=== PATIENT | female | born 1960 | race Caucasian/White ===

== ENCOUNTER → 2020-09-21 11:53 | Outpatient (BNV) | payer OTHER, SELFPAY | PROVIDERS: PCP Nurse Practitioner Family; Visit Provider Internal Medicine | DX: D50.9 Iron deficiency anemia, unspecified (principal); D56.9 Thalassemia, unspecified; Z85.3 Personal history of malignant neoplasm of breast | CPT/HCPCS: 99214; G2211 ==

== ENCOUNTER 2020-10-14 14:52 | Outpatient (REF) | payer OTHER, SELFPAY ==
--- NOTE | 2020-10-14 14:57 | XR_ITS ---
EXAMINATION: XR KNEE, RIGHT CLINICAL INFORMATION: S83.91XA - Sprain of unspecified site of right knee, initial COMPARISON: None TECHNIQUE: Four views of the right knee. FINDINGS: There is a moderate suprapatellar effusion. The bony structures appear intact with no fracture, dislocation, or destructive process. There is normal bony mineralization. No joint narrowing or erosive change or chondrocalcinosis. XR/XR knee RT 4V IMPRESSION: Moderate suprapatellar effusion. No fracture or dislocation.
== END 2020-10-14 14:53 | disposition home or self-care (01) ==
LOC: HO.HMGCX 14:52
PROVIDERS: PCP Nurse Practitioner Family; Visit Provider Internal Medicine
DX: S83.91XA Sprain of unspecified site of right knee, initial encounter (principal)
CPT/HCPCS: 73564

== ENCOUNTER 2020-10-17 14:10 | Outpatient (REF) | payer OTHER, SELFPAY ==
--- NOTE | 2020-10-17 14:15 | US_ITS ---
EXAMINATION: US VENOUS ULTRASOUND WITH DOPPLER LOWER EXTREMITY, RIGHT CLINICAL INFORMATION: Right lower extremity pain. Assess for occult DVT COMPARISON: None TECHNIQUE: Ultrasound of the deep veins is performed from the hip to the calf with compression sonography and color and pulse Doppler assessment. Spectral analysis with color-flow imaging is performed. FINDINGS: There is normal venous compression and respiratory variation and augmented flow. The visualized common femoral vein, superficial femoral vein, profunda femoral vein, popliteal vein, and the trifurcation region shows no evidence of deep venous thrombosis. No popliteal fossa cyst. US/US venous duplex LE RT IMPRESSION: No DVT demonstrated in the right lower extremity.
== END 2020-10-17 14:11 | disposition home or self-care (01) ==
LOC: HO.HMGCX 14:10
PROVIDERS: PCP Nurse Practitioner Family; Visit Provider Nurse Practitioner Family
DX: M79.661 Pain in right lower leg (principal); M79.89 Other specified soft tissue disorders
CPT/HCPCS: 93971

== ENCOUNTER 2020-11-17 16:21 | Outpatient (REF) | payer OTHER, SELFPAY ==
--- NOTE | ~2020-11-17 | MR_ITS ---
EXAMINATION: MR KNEE WITHOUT CONTRAST, RIGHT CLINICAL INFORMATION: Pain COMPARISON: Radiographs dated 10/14/2020 TECHNIQUE: MRI of the knee without contrast was performed using routine sequences on a high-field scanner. FINDINGS: MENISCI: Medial Meniscus: Complex tear of the posterior horn with horizontal undersurface and radial components associated with a folded fragment within the posterior intercondylar notch as seen on series 4, image 11. Tear propagates into the body. Truncation of the free edge of the body. Anterior horn intact. Lateral Meniscus: Intact LIGAMENTS: Cruciate: Intact Collateral: Intact EXTENSOR MECHANISM: Intact ARTICULAR CARTILAGE/BONE: Patellofemoral Compartment: Normal Medial Compartment: Normal Lateral Compartment: Normal JOINT FLUID AND BURSAE: Moderate joint effusion associated with a small Metz's cyst. MR/MR knee RT wo con IMPRESSION: * Complex tear involving the body and posterior horn of the medial meniscus with predominant horizontal undersurface cleavage fragment which appears to fold and into the posterior intercondylar notch. * Moderate joint effusion.
== END 2020-11-17 16:22 | disposition home or self-care (01) ==
LOC: HO.MRI 16:21
PROVIDERS: Visit Provider Nurse Practitioner Family
DX: M25.561 Pain in right knee (principal); M25.461 Effusion, right knee
CPT/HCPCS: 73721

== ENCOUNTER 2021-03-23 13:17 | Outpatient (REF) | payer OTHER, SELFPAY ==
[2021-03-23 14:34] LABS: Alanine Aminotransferase 12 U/L (0-31); Albumin Level 4.4 g/dL (3.5-5.0); Alkaline Phosphatase 103 U/L (39-117); Anion Gap 11 (12-20); Aspartate Amino Transferase 17 U/L (5-31); Bilirubin Total 0.3 mg/dL (0.0-1.0); Blood Urea Nitrogen 19 mg/dL (9-16); Carbon Dioxide 29 mmol/L (22-29); Chloride 105 mmol/L (96-108); Cholesterol 196 mg/dL; Estimated Glomerular Filt Rate 57; Glucose Fasting 71 mg/dL (60-99); HDL Cholesterol 55 mg/dL; LDL Cholesterol Calculated 115 mg/dl; Potassium 4.7 mmol/L (3.3-5.1); Sodium 140 mmol/L (135-145); Total Protein 6.7 g/dL (6.5-8.0); Triglycerides 130 mg/dL
[2021-03-23 14:55] LABS: TSH reflex Free T4 1.09 uIU/mL (0.32-4.0); Vitamin D 25-OH Total 34.7 ng/mL (>30)
== END 2021-03-23 13:18 | disposition home or self-care (01) ==
LOC: HO.LAB 13:17
PROVIDERS: PCP Nurse Practitioner Family; Visit Provider Internal Medicine
DX: Z78.0 Asymptomatic menopausal state (principal); E03.9 Hypothyroidism, unspecified
CPT/HCPCS: 36415; 80053; 80061; 82306; 84443

== ENCOUNTER 2021-05-25 11:41 | Outpatient (REF) | payer OTHER, SELFPAY ==
--- NOTE | ~2021-05-25 | MM_ITS ---
EXAMINATION: MM DIAGNOSTIC DIGITAL BREAST TOMOSYNTHESIS, BILATERAL CLINICAL INFORMATION: Due for yearly. Status post right lumpectomy 05/18/2019 for invasive ductal cancer, RT completed February 2020. Surgical margins negative for malignancy. 4 nodes negative for carcinoma. COMPARISON: Mammography: 05/23/2020, 09/28/2019, 05/18/2019, 04/30/2019, 04/15/2019, 02/26/2018 TECHNIQUE: Digital breast tomosynthesis is performed in both the craniocaudal and mediolateral oblique views along with computer-aided detection (CAD). Synthesized 2D images are generated from the tomosynthesis. Additional magnification right CC and magnification right ML views are obtained. FINDINGS: There are scattered areas of fibroglandular density (ACR BI-RADS breast composition Category b). Left breast parenchymal pattern is similar to prior studies. There is no developing density or interval mass or architectural abnormality. A benign coarse calcification is again seen anterior central left breast. The axilla and skin contours are unremarkable. There are post therapy changes again seen on the right. The smooth skin thickening is markedly decreased. The seroma right axilla is no longer clearly demonstrated. There is an oil cyst at the lumpectomy scar posterior 6:00 position with mild thickening at the posterior margin oil cyst. Right breast will be reassessed again in 6 months to follow-up postsurgical changes. There is no interval mass or abnormal calcifications. Results are provided to the patient by the technologist. MM/MM tomosynthesis diagnostic BI IMPRESSION: 1. Right: Post therapy changes. Skin thickening decreased. Seroma resolved. Small oil cyst and probable benign fat necrosis at lumpectomy site. 2. Left: No mammographic evidence of malignancy. ASSESSMENT: BI-RADS 3: Probably Benign RECOMMENDATION: Diagnostic right mammography in 6 months. This patient's information was entered into a reminder system with a target due date for their next mammogram.
== END 2021-05-25 11:42 | disposition home or self-care (01) ==
LOC: HO.MAMMO 11:41
PROVIDERS: PCP Internal Medicine; Visit Provider Internal Medicine
DX: C50.911 Malignant neoplasm of unspecified site of right female breast (principal)
CPT/HCPCS: 77062; 77066

== ENCOUNTER 2021-11-27 09:36 | Outpatient (REF) | payer OTHER, SELFPAY ==
--- NOTE | ~2021-11-27 | MM_ITS ---
EXAMINATION: MM DIAGNOSTIC DIGITAL BREAST TOMOSYNTHESIS, RIGHT CLINICAL INFORMATION: Short interval follow-up right breast for mild thickening posterior margin of benign oil cyst at lumpectomy site. Prior right lumpectomy 05/18/2019 for invasive ductal cancer, RT completed February 2020. Surgical margins negative for malignancy. 4 nodes negative for carcinoma. COMPARISON: Mammography: 05/25/2021, 05/23/2020, 09/28/2019 TECHNIQUE: Digital breast tomosynthesis is performed in both the craniocaudal and mediolateral oblique views along with computer-aided detection (CAD). Synthesized 2D images are generated from the tomosynthesis. Additional magnification views are obtained in the CC x2 and ML views. FINDINGS: There are scattered areas of fibroglandular density (ACR BI-RADS breast composition Category b). There are post therapy changes with mild reduced breast size and minor scarring lower breast. Incidental oil cysts again seen posterior 6:00 position with some peripheral benign rim calcification. The nodular thickening at posterior margin oil cyst is no longer demonstrated. Rather, there is smooth benign stromal markings. Results are discussed with the patient at time of visit. MM/MM tomosynthesis diagnostic RT IMPRESSION: Benign-appearing postsurgical changes right breast. The nodular thickening at posterior margin benign oil cyst is no longer demonstrated. ASSESSMENT: BI-RADS 3: Probably Benign RECOMMENDATION: Bilateral diagnostic mammography, due in 6 months. This patient's information was entered into a reminder system with a target due date for their next mammogram.
== END 2021-11-27 09:37 | disposition home or self-care (01) ==
LOC: HO.MAMMO 09:36
PROVIDERS: Visit Provider Internal Medicine
DX: N64.59 Other signs and symptoms in breast (principal)
CPT/HCPCS: 77061; 77065

== ENCOUNTER 2021-12-27 07:56 | Outpatient (REF) | payer OTHER, SELFPAY ==
--- NOTE | ~2021-12-27 | CT_ITS ---
EXAMINATION: CT ABDOMEN AND PELVIS WITH CONTRAST CLINICAL INFORMATION: Abdominal pain and hematochezia. COMPARISON: None. TECHNIQUE: Multidetector volumetric images were obtained from the superior aspect of the liver through the pubic symphysis following administration 85 mL of Omnipaque 350 intravenous contrast. Sagittal and coronal reformatted images were obtained on the technologist's workstation. Oral contrast: No This CT examination was performed using dose optimization techniques as appropriate, variously including the following: *Automated exposure control *Adjustment of mA and/or kV according to patient size (this includes techniques or standardized protocols for targeted exams where dose is matched to indication/reason for exam; i.e. extremities or head) *Use of iterative reconstruction technique DLP: 417 mGy-cm FINDINGS: LUNG BASES: The visualized lung bases are unremarkable. LIVER, GALLBLADDER, AND BILIARY TREE: The liver is normal in size, shape, and attenuation. No focal hepatic lesion or biliary ductal dilatation is present. The gallbladder is unremarkable with no evidence of radiopaque gallstones, gallbladder wall thickening, or obvious pericholecystic inflammatory changes. PANCREAS: Unremarkable. SPLEEN: Unremarkable. ADRENAL GLANDS: There is a left adrenal nodule measuring 1.5 cm. KIDNEYS AND URETERS: The kidneys are normal in size, shape, and attenuation. No hydronephrosis, hydroureter, or calculi seen. No perinephric stranding. BLADDER: No radiopaque calculi seen. There is extruded contrast opacifying the left UVJ. GASTROINTESTINAL TRACT: There is scattered stool, oral contrast and gas seen throughout the colon without any significant distention. There are a few scattered diverticula but no evidence of diverticulitis. Oral contrast opacified small bowel loops are normal caliber. Appendix is normal caliber. No inflammatory process seen in the abdomen. ABDOMINAL WALL: No significant hernia is appreciated. LYMPH NODES: Normal. VASCULAR: Unremarkable. PELVIC VISCERA: Unremarkable. OSSEOUS STRUCTURES: No lytic or sclerotic process seen. There is mild degenerative disc changes L4-L5, L5/S1 disc levels with posterior spondylosis. Also visualized are degenerative disc changes T7-T8 through T10-T11 disc levels. No aggressive lytic or sclerotic process seen. CT/CT abdomen pelvis w con IMPRESSION: No acute intra-abdominal process seen. Mild constipation with scattered colonic diverticulosis but no diverticulitis. Severe degenerative disc changes L4-L5, L5-S1 and lower dorsal spine as described above with mild ventral spondylosis. Fleischner guidelines were followed.
[2021-12-27] MEDS: iohexoL 350 MG/ML 100 ML INFUS..BTL IV (10:43)
[2021-12-27] MEDS: Barium Sulfate Oral (Berry) 450 ML ORAL.SUSP 900 ML PO (10:43)
== END 2021-12-27 07:57 | disposition home or self-care (01) ==
LOC: HO.CT 07:56
PROVIDERS: Visit Provider Internal Medicine
DX: R10.9 Unspecified abdominal pain (principal); K92.1 Melena
CPT/HCPCS: 74177; Q9967

== ENCOUNTER → 2022-02-19 07:33 | Outpatient (BNVA) | payer OTHER, SELFPAY | PROVIDERS: Visit Provider Physician Assistant | DX: K59.09 Other constipation (principal); R11.2 Nausea with vomiting, unspecified; Z80.0 Family history of malignant neoplasm of digestive organs | CPT/HCPCS: 99202 ==

== ENCOUNTER 2022-05-29 12:47 | Outpatient (REF) | payer OTHER, SELFPAY ==
--- NOTE | ~2022-05-29 | MM_ITS ---
EXAMINATION: MM DIAGNOSTIC DIGITAL BREAST TOMOSYNTHESIS, BILATERAL CLINICAL INFORMATION: Due for yearly. Also follow-up probable fat necrosis lumpectomy scar posterior inferior right breast. History right lumpectomy 05/18/2019 for invasive ductal cancer, RT completed February 2020. Surgical margins negative for malignancy. 4 nodes negative for carcinoma. COMPARISON: Mammography: 11/27/2021, 05/25/2021 (diagnostic, BI-RADS 3), 05/23/2020, 09/28/2019, 04/15/2019, 02/26/2018, 03/03/2015 TECHNIQUE: Digital breast tomosynthesis is performed in both the craniocaudal and mediolateral oblique views along with computer-aided detection (CAD). Synthesized 2D images are generated from the tomosynthesis. Additional views are obtained: Right CC, magnification right CC x2, magnification right ML. FINDINGS: There are scattered areas of fibroglandular density (ACR BI-RADS breast composition Category b). Parenchymal pattern is similar to prior studies and there is no interval mass or architectural abnormality or abnormal calcifications. There are post therapy changes on the right with minor scarring. There is a benign oil cyst with benign coarse rim calcification posterior central 6:00 position. The nodular asymmetry in this area noted on 05/25/2021 is no longer present. The axilla are unremarkable. Results are provided to the patient at time of visit by the technologist. MM/MM tomosynthesis diagnostic BI IMPRESSION: -No mammographic evidence of malignancy. -Benign oil cyst posterior lower right breast. The nodular asymmetry in this area noted on 05/25/2021 is no longer present. ASSESSMENT: BI-RADS 2: Benign RECOMMENDATION: Annual bilateral mammography. This patient's information was entered into a reminder system with a target due date for their next mammogram.
== END 2022-05-29 12:48 | disposition home or self-care (01) ==
LOC: HO.MAMMO 12:47
PROVIDERS: Visit Provider Internal Medicine
DX: R92.8 Other abnormal and inconclusive findings on diagnostic imaging of breast (principal); R92.1 Mammographic calcification found on diagnostic imaging of breast
CPT/HCPCS: 77062; 77066

== ENCOUNTER 2022-06-20 08:58 | Day surgery (SDC) | payer OTHER, SELFPAY ==
[2022-06-18 10:32] VITALS: BMI 21.4
--- NOTE | 2022-06-20 09:16 | P.CONAN_ITS ---
[facility] Active Problems Active Problems: All Active Problems (Updated 03/22/22 @ 19:50 by Jefferson Quiroz [facility]) Family history of colon cancer (Acute) Nausea & vomiting (Acute) Chronic constipation (Acute) Postmenopausal (Acute) Hypothyroid (Acute) Graves disease (Acute) Acute meniscal tear of right knee (Acute) Pain and swelling of right knee (Acute) Swelling of right lower extremity (Acute) Sprain of right knee (Acute) Breast cancer (Chronic) Past Medical History Medical History (Updated 03/22/22 @ 19:50 by Jefferson Qiuroz [facility]) Atherosclerosis of both carotid arteries Breast cancer, right CAD (coronary artery disease) Carotid artery disease Chest pain Graves disease HTN (hypertension) Hypercholesterolemia Thalassemia Family History Family History Sister FH: kidney cancer Mother Colon cancer Sister Breast cancer Sister Breast cancer Father History of heart attack Mother Colon cancer Family history of problems with anesthesia: No Surgical History Surgical History History of fracture of nose History of hysterectomy History of Problems with Anesthesia: No Social History Social History (Updated 12/06/21 @ 08:54 by Yumiko Whittington CMA) Household Members: Friend(s) Housing: Other Housing Other:: [place] Are you a primary rn progressive care unit to a significant other at home: No Do you presently have visiting nurse or other home services: No Alcohol intake: former Patient Tobacco Use Status: Current everyday Tobacco user Tobacco use type: Cigarette Advance Directives: No Advance Directives Information Provided: Yes service: No Current occupational status: employed Meds Allergies Allergy/AdvReac Type Severity Reaction Status Date / Time amoxicillin [From AUGMENTIN] Allergy Intermediate RASH Verified 02/19/22 07:44 clavulanic acid Allergy Intermediate RASH Verified 02/19/22 07:44 [From AUGMENTIN] codeine [CODEINE] Allergy Intermediate GI DISTRESS Verified 02/19/22 07:44 Penicillins [PENICILLINS] Allergy Intermediate RASH Verified 02/19/22 07:44 Sulfa (Sulfonamide Allergy Intermediate GI Verified 02/19/22 07:44 Antibiotics) UPSET/SKIN [SULFA (SULFONAMIDE REACTION ANTIBIOTICS)] Home Medications Medication Instructions Recorded Confirmed Last Taken Type [id number]-[id number] 250 2 tab PO Q6H PRN Migraine Headache 08/22/20 12/06/21 Unknown History mg-250 mg-65 mg tablet (Excedrin Migraine) methadone 5 mg tablet 150 mg PO DAILY 08/22/20 12/06/21 Unknown History amlodipine 5 mg tablet 1 tab PO DAILY 12/06/21 12/06/21 Unknown History aspirin 81 mg tablet,delayed 81 mg PO DAILY 02/19/22 Unknown History release Exam Exam Date and Time: June 20, [id number] Height,Weight and Vital Signs: Height 5 ft 7 in Weight 62.142 kg Airway Mallampati Class: II TM Dist: >3cm Neck ROM: Full Heart: rrr Lungs: cta Assessment and Plan Assessment Anesthesia Assessment: Anesthesia Plan Discussed and Chart Reviewed Final Anesthetic Review Family History of Problems with Anesthesia: No History of Problems with Anesthesia: No NPO: Yes ASA Class: III Final Preanesthetic Review: No Changes in Pt Med Stat, Meds/Allgs Chart Reviewed and Consent Obtained/Reviewed Patient Risk: Intermediate Procedure Risk: Intermediate Anesthetic Plan Anesthetic Plan: MAC: Disposition: Standard PACU
--- NOTE | 2022-06-20 09:18 | MHC.SHP ---
Pre-Procedural Eval Section A Date of Service: 06/20/22 Section B Chief Complaint: constipation,nausea with vomiting Details of Present Illness: FH of CRC in mother and sister with colon polyps Relevant Family History (Specify if Yes): Yes Relevant Social History: Tobacco Use Present Medications: see Short Stay Collaborative assessment Medical History: Significant History (Breast cancer, right Carotid artery disease Chest pain Graves disease HTN (hypertension) Hypercholesterolemia Thalassemia) History of Previous Operations: Relevant previous surgery/procedure and date(s) (History of fracture of nose History of hysterectomy) Allergies: Allergies Allergy/AdvReac Type Severity Reaction Status Date / Time amoxicillin [From AUGMENTIN] Allergy Intermediate RASH Verified 02/19/22 07:44 clavulanic acid Allergy Intermediate RASH Verified 02/19/22 07:44 [From AUGMENTIN] codeine [CODEINE] Allergy Intermediate GI DISTRESS Verified 02/19/22 07:44 Penicillins [PENICILLINS] Allergy Intermediate RASH Verified 02/19/22 07:44 Sulfa (Sulfonamide Allergy Intermediate GI Verified 02/19/22 07:44 Antibiotics) UPSET/SKIN [SULFA (SULFONAMIDE REACTION ANTIBIOTICS)] Review of Systems Sugical H&P ROS: Negative: Constitution, Cardiovascular, Respiratory, Neurological, Psychiatric, Hem-Onc, Allergic/Immunologic, Gastrointestinal, Genitourinary, Musculoskeletal, Integumentary, Endocrine and Eyes/Ears/Nose/Throat Exam Surgical H&P Exam: Normal: HEENT, Normal: Heart, Normal: Lungs, Normal: Extremities, Normal: Abdomen, Normal: Skin and Normal: Neurological Plan Diagnosis/Plan: Unchanged I have reviewed the history and physical and performed a pertinent physical examination on my patient. No changes have occurred unless specified.
--- NOTE | 2022-06-20 09:20 | W.PM.OPN ---
Operative Note Operative Note Date of Service: 06/20/22 Narrative: Operative Information Procedure Description: EGD, Colonoscopy Indication: chronic nausea and pos FH of CRC Anesthesia: MAC FLEXIBLE TRANSORAL UPPER GASTROINTESTINAL ENDOSCOPY AND COLONOSCOPY PROCEDURE NOTE UPPER ENDOSCOPY Consent: Indications for the procedure and potential complications of bleeding, perforation, reaction to medications and missed diagnosis were discussed with the patient and informed consent was obtained. Instrument: Olympus GIF H 190 J mid size upper endoscope Monitoring: Vital signs and clinical assessment, continuous EKG monitoring, Pulse oximetry, Carbon Dioxide monitoring and blood pressure monitoring were done throughout the procedure. Procedure: The patient was placed in the left lateral decubitis position and pre-procedure medications were administered and a bite block was placed. The endoscope was inserted into the mouth and advanced under direct vision to the third part of duodenum. A careful inspection was made as the upper endoscope was withdrawn including a retroflexed examination of the proximal stomach; Findings and interventions are described below. Findings: Larynx:normal Esophagus: GE junction at 36 cm, diaphragm hiatus at 36 cm, esophagitis at GEJ, bx taken from GEJ and distal esophagus Stomach: PAtchy nodularity and erythema with erosions. Biopsies were obtained. Grade 2 flap valve on retroflexed examination of the cardia. Duodenum: Patchy erythema, bx taken Intervention: Biopsies as noted above COLONOSCOPY Instrument: Olympus variable stiffness pediatric scope 190L Colonoscopy Monitoring: Vital signs and clinical assessment, continuous EKG monitoring, Pulse oximetry, Carbon Dioxide monitoring and blood pressure monitoring were done throughout the procedure. Colon withdrawal time was 11 minutes. Procedure: The patient was placed in the left lateral decubitis position and pre-procedure medications were administered. After a digital rectal examination of the ano-rectum, the video colonoscope was inserted into the rectum and advanced through the colon to the cecum/TI. The colonoscope was slowly withdrawn in a retrograde panoramic fashion and the colon mucosa was carefully examined including a retroflexed view of the rectum. Findings and interventions are described below. Procedure Difficulty: moderate, pressure applied to reach cecum Findings: Terminal Ileum-not intubated Cecum: 6-7 mm sessile polyp removed with cold forceps Ascending Colon: 10-12 mm sessile polyp removed with cold snare Transverse Colon -normal Descending Colon:normal Sigmoid Colon: moderate diverticulosis Rectum: Retroflexion with small internal hemorrhoids, grade I Anorectum - normal Colon preparation: [place] Bowel Preparation Scale Right colon; 2 Transverse colon: 3 Left colon; 3 (0 = Unprepared colon segment with mucosa not seen due to solid stool that cannot be cleared. 1 = Portion of mucosa of the colon segment seen, but other areas of the colon segment not well seen due to staining, residual stool and/or opaque liquid. 2 = Minor amount of residual staining, small fragments of stool and/or opaque liquid, but mucosa of colon segment seen well. 3 = Entire mucosa of colon segment seen well with no residual staining, small fragments of stool or opaque liquid) Impression and Post Procedure Diagnosis: Endoscopy Findings: erosive gastritis duodenitis esophagitis Colonoscopy Findings: polyps internal hemorrhoids diverticular disease Plan: Await Pathology results Repeat Colonoscopy in 5 years due to FH and polyps today or earlier if clinically indicated High fiber diet leaflet avoid straining at stool, epsom salts and sitz bath, anusol supps or cream check nsaid hx and compliance with PPI, if h pylori pos then treat Above findings were reviewed with the patient and relevant handouts were provided if indicated.
[2022-06-20 09:25] VITALS: BP 117/52; PULSE 63; RESP 18; TEMP 36.8; O2SAT 97
[2022-06-20 09:31] VITALS: BMI 25.4
[2022-06-20] MEDS: Lactated Ringers 1,000 ML 50 ML IVCONT (09:32)
[2022-06-20 11:01] VITALS: BP 118/61; PULSE 63; RESP 15; TEMP 36.7; O2SAT 95
[2022-06-20 11:16] VITALS: BP 119/57; PULSE 63; RESP 16; TEMP 36.7; O2SAT 97
[2022-06-20 11:30] VITALS: BP 120/61; PULSE 62; RESP 16; TEMP 36.8; O2SAT 95
== END 2022-06-20 12:35 | disposition home or self-care (01) ==
PROVIDERS: Visit Provider Internal Medicine Gastroenterology
PROC: (CPT 45385; principal; 2022-06-20 10:10)
DX: K59.09 Other constipation (principal); Z80.0 Family history of malignant neoplasm of digestive organs; D12.0 Benign neoplasm of cecum; D12.2 Benign neoplasm of ascending colon; K57.30 Diverticulosis of large intestine without perforation or abscess without bleeding; K64.0 First degree hemorrhoids; K29.50 Unspecified chronic gastritis without bleeding; B96.81 Helicobacter pylori [H. pylori] as the cause of diseases classified elsewhere; K31.84 Gastroparesis; R11.2 Nausea with vomiting, unspecified; K29.80 Duodenitis without bleeding; K20.80 Other esophagitis without bleeding; K44.9 Diaphragmatic hernia without obstruction or gangrene; I10 Essential (primary) hypertension; I77.9 Disorder of arteries and arterioles, unspecified; D56.9 Thalassemia, unspecified; E78.00 Pure hypercholesterolemia, unspecified; E05.00 Thyrotoxicosis with diffuse goiter without thyrotoxic crisis or storm; Z85.3 Personal history of malignant neoplasm of breast; Z79.82 Long term (current) use of aspirin; Z79.899 Other long term (current) drug therapy; Z88.1 Allergy status to other antibiotic agents; Z88.0 Allergy status to penicillin; Z88.2 Allergy status to sulfonamides; Z88.8 Allergy status to other drugs, medicaments and biological substances; F17.210 Nicotine dependence, cigarettes, uncomplicated
CPT/HCPCS: 45385; 45380; 43245; 43239; 88305; 88342; C1726

== ENCOUNTER 2023-07-19 08:02 | Outpatient (REF) | payer OTHER, SELFPAY ==
--- NOTE | ~2023-07-19 | MM_ITS ---
EXAMINATION: MM SCREENING DIGITAL BREAST TOMOSYNTHESIS, BILATERAL CLINICAL INFORMATION: Screening. Asymptomatic. History right lumpectomy 05/18/2019 for invasive ductal cancer, RT completed February 2020. Also due for yearly. COMPARISON: Mammography: 05/29/2022, 11/27/2021, 05/25/2021 (diagnostic, BI-RADS 3), 05/23/2020, 09/28/2019, 04/15/2019, 02/26/2018, 03/03/2015 TECHNIQUE: Digital breast tomosynthesis is performed in both the craniocaudal and mediolateral oblique views along with computer-aided detection (CAD). Synthesized 2D images are generated from the tomosynthesis. FINDINGS: There are scattered areas of fibroglandular density (ACR BI-RADS breast composition Category b). Stable scarring and calcified cyst in the 6:00 axis of the right breast, posterior one third. Benign biopsy clip again noted in the 12:00 axis left breast, anterior one third. There are no suspicious masses, suspicious grouped calcifications, or areas of architectural distortion in either breast. The parenchymal pattern is stable from prior exams. MM/MM tomosynthesis screening BI IMPRESSION: No mammographic evidence of malignancy. Stable benign findings both breasts. ASSESSMENT: BI-RADS BI-RADS 2 - Benign Findings RECOMMENDATION: Routine annual mammography screening. 1 year F/U This examination should not preclude the clinical evaluation of a suspicious palpable abnormality. This patient's information was entered into a reminder system with a target due date for their next mammogram.
== END 2023-07-19 08:03 | disposition home or self-care (01) ==
LOC: HO.MAMMO 08:02
PROVIDERS: PCP Nurse Practitioner Family; Visit Provider Nurse Practitioner Family
DX: Z12.31 Encounter for screening mammogram for malignant neoplasm of breast (principal)
CPT/HCPCS: 77063; 77067

== ENCOUNTER → 2023-07-19 08:15 | Outpatient (BNV) | payer OTHER, SELFPAY | PROVIDERS: PCP Nurse Practitioner Family; Visit Provider Radiology Diagnostic Radiology | DX: Z12.31 Encounter for screening mammogram for malignant neoplasm of breast (principal) | CPT/HCPCS: 77063; 77067 ==

== ENCOUNTER 2023-07-29 16:01 | Outpatient (AMB) | payer OTHER, SELFPAY ==
--- NOTE | 2023-07-29 16:21 | MHC.PC.OV ---
Vital Signs 07/29/23 16:23 Weight 124 lb BP 128/74 Blood Pressure Location Rt brachial Position Sitting Pulse 61 Pulse Source Pulse Oximeter Pulse Oximetry (%) 96 Oxygen Delivery Method Room Air Intake Visit Reasons: follow up Allergies amoxicillin [From AUGMENTIN] Allergy (Intermediate, Verified 07/29/23 16:23) RASH clavulanic acid [From AUGMENTIN] Allergy (Intermediate, Verified 07/29/23 16:23) RASH codeine [CODEINE] Allergy (Intermediate, Verified 07/29/23 16:23) GI DISTRESS Penicillins [PENICILLINS] Allergy (Intermediate, Verified 07/29/23 16:23) RASH Sulfa (Sulfonamide Antibiotics) [SULFA (SULFONAMIDE ANTIBIOTICS)] Allergy (Intermediate, Verified 07/29/23 16:23) GI UPSET/SKIN REACTION Tobacco use date assessed: 07/29/23 Dental Screening Dental Screen Date: 07/29/23 Did you have a dental visit in the last 12 months?: No Did you have a dental problem in the last 6 months where you did not have access to dental care?: No Was dental information given to patient?: Patient declined HPI follow up HPI Details Pt is here for a PE. Will order labs. Mammo is up to date. Colon screen is up to date. Pt no longer sees a quality control microbiologist, hx of partial hysterectomy. Due for bone density, will order. Pt follows up with cardiology. Pt c/o lower back pain. She does report radicular symptoms down her BLE. Denies any signs of cauda equina. Will order XR. Pt has a hx of Graves disease. Will refer to endo. [facility], [facility] Medical History (Updated 07/29/23 @ 16:39 by OLVIN Storey) CAD (coronary artery disease) Atherosclerosis of both carotid arteries Graves disease Hypercholesterolemia HTN (hypertension) Breast cancer, right Chest pain Carotid artery disease Thalassemia Surgical History History of esophagogastroduodenoscopy (EGD) Hx of colonoscopy History of fracture of nose History of hysterectomy Family History Sister FH: kidney cancer Mother Colon cancer Sister Breast cancer Sister Breast cancer Father History of heart attack Mother Colon cancer Social History Household Members: Friend(s) Housing: Other Housing Other:: [place] Are you a primary lead caregiver to a significant other at home: No Do you presently have visiting nurse or other home services: No Alcohol intake: former Patient Tobacco Use Status: Current everyday Tobacco user Tobacco use type: Cigarette Cigarettes Per Day: 6 service: No Current occupational status: employed Cognitive needs: No Hearing needs: No Vision needs: No Review of Systems Const Denies chills and Denies fever(s) Eyes Denies blurry vision ENT Denies vertigo, Denies dizziness and Denies sore throat Card Denies chest pain at rest, Denies chest pain with activity, Denies diaphoresis, Denies dyspnea and Denies dyspnea on exertion Resp Denies cough, Denies dyspnea, Denies dyspnea on exertion and Denies wheezing GI Denies abdominal pain, Denies melena, Denies hematochezia, Denies constipation, Denies diarrhea and Denies loose stools Denies hematuria Musc Reports back pain, Denies numbness and Denies tingling Skin/Breast Denies lesions Neuro Denies vertigo, Denies dizziness, Denies numbness and Denies tingling Psych Denies anxiety, Denies depression, Denies homicidal ideation, Denies suicidal ideation and Denies other (substance abuse) Aller/Immun Denies wheezing Physical exam (Primary Care) Vital Signs: Last Vital Signs Pulse 61 07/29/23 16:23 BP 128/74 07/29/23 16:23 Pulse Ox 96 07/29/23 16:23 Oxygen Delivery Method Room Air 07/29/23 16:23 Tobacco/Smoking Status: Tobacco use Status Tobacco use date assessed 07/29/23 07/29/23 16:26 Patient Tobacco Use Status Current everyday Tobacco 07/29/23 16:26 Tobacco use type Cigarette 07/29/23 16:26 Const General: cooperative Nutritional Appearance: well nourished Orientation/consciousness: patient oriented x3 HENMT Head: Yes normal to inspection, Yes normocephalic and Yes atraumatic Ears: TM's normal bilaterally Eyes General: appearance normal, both eyes and all related structures Alignment and Position: alignment normal and position normal Neck Neck: Yes normal visual inspection and Yes no lymphadenopathy Thyroid: Thyroid normal Resp Effort & Inspection: normal respiratory effort Auscultation: clear to auscultation bilaterally and diminished lung sounds Cardio Rate: regular rate Rhythm: regular rhythm Heart sounds: S1 normal heart sound present, S2 normal heart sound present and Murmur heart sound present systolic GI Palpation (GI): Soft to palpation and nontender Auscultation: normal bowel sounds Back/Spine/Pelvis Other: unable to heel and toe walk, radicular symptoms noted with BLE raises with pt in supine position Skin Rashes: no rashes Neuro General: patient oriented x3, moves all extremities, no focal motor deficits and deep tendon reflexes 2+ bilaterally Romberg Test: Negative Psych Appearance: grossly normal Mental Status: mental status grossly normal Speech and movement: Normal speech and movement present Affect: normal affect Attitude: cooperative Thought process: Normal thought process present Thought content: Normal thought content present Insight: Good insight present (Psych) Judgement: Good judgement present (Psych) Assessment and Plan Assessment & Plan (1) Physical exam: Code(s): Z00.00 - Encounter for general adult medical examination without abnormal findings Plan: Labs ordered (2) Graves disease: Code(s): E05.00 - Thyrotoxicosis with diffuse goiter without thyrotoxic crisis or storm (3) Postmenopausal: Code(s): Z78.0 - Asymptomatic menopausal state Plan: Bone density ordered (4) Chronic lower back pain: Code(s): M54.50 - Low back pain, unspecified; G89.29 - Other chronic pain Plan The patient agreed to the use of a medical practice manager for this encounter. Scribed for ARACELI Hill- by Cindy Renee medical practice manager, on 07/29/2023 at 16:30 EST. Orders: Orders XR DEXA axial skeleton Today Z78.0 - Asymptomatic menopausal state XR lumbar spine 2-3V Today G89.29 - Other chronic pain, M54.50 - Low back pain, unspecified Complete Blood Count Auto Diff Today Z00.00 - Encounter for general adult medical examination without abnormal findings Comprehensive [place]. Panel Fast Today Z00.00 - Encounter for general adult medical examination without abnormal findings TSH reflex Free T4 Today Z00.00 - Encounter for general adult medical examination without abnormal findings UA CC w/rflx Micro + Cult Today Z00.00 - Encounter for general adult medical examination without abnormal findings Lipid Panel Today Z00.00 - Encounter for general adult medical examination without abnormal findings Referrals Endocrinology Referral E05.00 - Thyrotoxicosis with diffuse goiter without thyrotoxic crisis or storm Thoracic Surgery Referral F17.200 - Nicotine dependence, unspecified, uncomplicated Coding Level of Care Code Est Pt Prev Care 40-64y(49364) Diagnoses Physical exam Z00.00 Graves disease E05.00 Postmenopausal Z78.0 Chronic lower back pain M54.50; G89.29
[2023-07-29 16:23] VITALS: BP 128/74; PULSE 61; O2SAT 96
== END 2023-07-29 16:43 | disposition home or self-care (01) ==
PROVIDERS: PCP Nurse Practitioner Family; Visit Provider Nurse Practitioner Family
DX: Z00.00 Encounter for general adult medical examination without abnormal findings (principal); E05.00 Thyrotoxicosis with diffuse goiter without thyrotoxic crisis or storm; Z78.0 Asymptomatic menopausal state; M54.50 Low back pain, unspecified; G89.29 Other chronic pain
CPT/HCPCS: 99396

== ENCOUNTER 2023-09-18 08:43 | Outpatient (REF) | payer OTHER, SELFPAY ==
[2023-09-18 11:26] LABS: Appearance Urine Clear; Color Urine Yellow; Glucose Urine UA Negative (Negative); Leukocyte Esterase Urine Negative (Negative); Nitrite Urine Negative (Negative); PH 5.5 (5.0-9.0); Urine Blood Negative (Negative); Urine Ketones Negative (Negative); Urine Protein Negative (Neg-Trace)
[2023-09-18 11:30] LABS: MANUAL DIFF FLAG NO
[2023-09-18 11:45] LABS: Basophils Absolute Auto 0.1 X10*3/uL (0.0-0.2); Basophils Percent Auto 1.1 % (0-2); Eosinophils Absolute Auto 0.2 X10*3/uL (0.0-0.4); Eosinophils Percent Auto 1.8 % (0-4); Hematocrit 29.5 % (37.0-47.0); Hemoglobin 9.2 g/dl (12.0-16.0); Imm Gran Abs Auto 0.04 X10*3/uL (0.00-0.03); Imm Gran Pct Auto 0.4 % (0.0-0.4); Lymphocytes Absolute Auto 1.7 X10*3/uL (1.2-4.9); Lymphocytes Percent Auto 16.6 % (20-40); Mean Corpuscular HGB Conc 31.2 g/dl (31.0-35.0); Mean Corpuscular Hemoglobin 19.9 pg (27.0-33.0); Mean Platelet Volume 10.7 fL (9.4-12.3); Monocytes Absolute Auto 0.7 X10*3/uL (0.1-1.2); Monocytes Percent Auto 6.4 % (2-11); Neutrophils Absolute Auto 7.4 x10*3/uL (2.0-8.3); Neutrophils Percent Auto 73.7 % (45-73); Platelet Count 334 X10*3/uL (160-400); Red Blood Count 4.62 X10*6/uL (4.20-5.50); White Blood Count 10.1 X10*3/uL (4.8-10.8)
[2023-09-18 11:46] LABS: Mean Corpuscular Volume 63.9 fL (80.0-98.0)
[2023-09-18 12:22] LABS: Alanine Aminotransferase 6 U/L (0-31); Albumin Level 4.1 g/dL (3.5-5.0); Alkaline Phosphatase 83 U/L (39-117); Anion Gap 11 (12-20); Aspartate Amino Transferase 13 U/L (5-31); Bilirubin Total 0.3 mg/dL (0.0-1.0); Blood Urea Nitrogen 21 mg/dL (9-16); Calcium 9.6 mg/dL (8.4-10.2); Carbon Dioxide 27 mmol/L (22-29); Chloride 107 mmol/L (96-108); Cholesterol 153 mg/dL (<200); Estimated Glomerular Filt Rate 59; Glucose Fasting 96 mg/dL (60-99); HDL Cholesterol 52 mg/dL (>40); LDL Cholesterol Calculated 89 mg/dL (<100); Potassium 4.4 mmol/L (3.3-5.1); Sodium 141 mmol/L (135-145); Total Protein 6.9 g/dL (6.5-8.0); Triglycerides 64 mg/dL (<150)
[2023-09-18 12:38] LABS: TSH reflex Free T4 5.04 uIU/mL (0.32-4.0)
[2023-09-18 13:19] LABS: Free T4 (Free Thyroxine) 1.15 ng/dL (0.71-1.85)
== END 2023-09-18 08:44 | disposition home or self-care (01) ==
LOC: HO.HMGCX 08:43
PROVIDERS: PCP Nurse Practitioner Family; Visit Provider Nurse Practitioner Family
DX: M54.50 Low back pain, unspecified (principal); G89.29 Other chronic pain; Z00.00 Encounter for general adult medical examination without abnormal findings
CPT/HCPCS: 36415; 72100; 80053; 80061; 81003; 84439; 84443; 85025

== ENCOUNTER 2024-01-01 10:31 | Outpatient (REF) | payer OTHER, SELFPAY ==
[2024-01-01 13:29] LABS: MANUAL DIFF FLAG NO
[2024-01-01 13:50] LABS: Basophils Absolute Auto 0.1 X10*3/uL (0.0-0.2); Basophils Percent Auto 0.9 % (0-2); Eosinophils Absolute Auto 0.5 X10*3/uL (0.0-0.4); Eosinophils Percent Auto 5.4 % (0-4); Hematocrit 28.8 % (37.0-47.0); Hemoglobin 8.9 g/dl (12.0-16.0); Imm Gran Abs Auto 0.04 X10*3/uL (0.00-0.03); Imm Gran Pct Auto 0.5 % (0.0-0.4); Lymphocytes Absolute Auto 1.8 X10*3/uL (1.2-4.9); Mean Corpuscular HGB Conc 30.9 g/dl (31.0-35.0); Mean Corpuscular Hemoglobin 19.6 pg (27.0-33.0); Monocytes Absolute Auto 0.7 X10*3/uL (0.1-1.2); Monocytes Percent Auto 8.2 % (2-11); Neutrophils Absolute Auto 5.6 x10*3/uL (2.0-8.3); Platelet Count 386 X10*3/uL (160-400); Red Blood Count 4.53 X10*6/uL (4.20-5.50); Red Cell Distribution Width 17.4 % (11.0-16.0); White Blood Count 8.7 X10*3/uL (4.8-10.8)
[2024-01-01 13:51] LABS: Mean Corpuscular Volume 63.6 fL (80.0-98.0)
[2024-01-01 14:02] LABS: Iron 46 mcg/dL (30-160); Percent Iron Saturation 13 % (15-50); Total Iron Binding Capacity 347 mcg/dL (228-428); Unsaturated Iron Binding 301 ug/dL
[2024-01-01 14:18] LABS: Ferritin 24 ng/mL (10-250); TSH reflex Free T4 0.93 uIU/mL (0.32-4.0)
== END 2024-01-01 10:32 | disposition home or self-care (01) ==
LOC: HO.HMGCLDS 10:31
PROVIDERS: PCP Nurse Practitioner Family; Visit Provider Nurse Practitioner Family
DX: D64.9 Anemia, unspecified (principal); E03.9 Hypothyroidism, unspecified
CPT/HCPCS: 36415; 82728; 83540; 84443; 85025

== ENCOUNTER 2024-01-07 07:51 | Outpatient (AMB) | payer OTHER, SELFPAY ==
--- NOTE | 2024-01-07 07:58 | A.OFFVIS_ITS ---
Intake Vital Signs 01/07/24 08:11 Height 5 ft Weight 120 lb BMI 23.4 BP 133/54 L Blood Pressure Location Lt brachial Position Sitting Pulse 54 Intake Visit Reasons: H pylori positive Intake Note: Patient follow up for H-pylori positive. Patient cc: constipation with hard stool. needed refills on Citrucel and soft stool. Manager Copy Required: No Accompanied by: Family/Other Allergies amoxicillin [From AUGMENTIN] Allergy (Intermediate, Verified 01/07/24 07:56) RASH clavulanic acid [From AUGMENTIN] Allergy (Intermediate, Verified 01/07/24 07:56) RASH codeine [CODEINE] Allergy (Intermediate, Verified 01/07/24 07:56) GI DISTRESS Penicillins [PENICILLINS] Allergy (Intermediate, Verified 01/07/24 07:56) RASH Sulfa (Sulfonamide Antibiotics) [SULFA (SULFONAMIDE ANTIBIOTICS)] Allergy (Intermediate, Verified 01/07/24 07:56) GI UPSET/SKIN REACTION Medication List - Last Reconciled 01/07/24 by Tomeka Geller PA-C amlodipine 10 mg PO DAILY aspirin 81 mg PO DAILY gzhazxb-syyfbduoogsvk-trjemzlb 250-250-65 mg (Excedrin Migraine) 2 tabs PO Q6H PRN atorvastatin 40 mg PO DAILY [Knee brace Right knee brace for right knee sprain/] levothyroxine 175 mcg PO DAILY lisinopril 20 mg PO DAILY methadone 165 mg PO DAILY metoprolol succinate ER 25 mg PO DAILY omeprazole 20 mg PO DAILY HPI HPI Comments History of Present Illness Details A 63 y/o female seen 2021- had an EGD and colonoscopy- HP positive-she NOS f/u on 07/04/2022 She is here today says apparrently I have an infection someone called me - never had treatment - she has never taken any antibiotics- she never did follow- up for results She follows with Dr. Zendejas- for thalasemia Completed chemotherapy for breast cancer- She has difficulty with walking, awaiting a total knee replacement unsure when she will do this Appetite good-she is taken omeprazole for heartburn -bloating unable to identify anything specific Constipation-for many years, she is taking oxy- taking no remedy No N/V/abdominal pain- heartburn fever or chills PFSH Medical History (Updated 01/07/24 @ 10:04 by Tomeka Geller PA-C) Fracture of left distal radius Left wrist fracture CAD (coronary artery disease) Atherosclerosis of both carotid arteries Graves disease Hypercholesterolemia HTN (hypertension) Breast cancer, right Chest pain Carotid artery disease Thalassemia Surgical History History of esophagogastroduodenoscopy (EGD) Hx of colonoscopy History of fracture of nose History of hysterectomy Family History Sister FH: kidney cancer Mother Colon cancer Sister Breast cancer Sister Breast cancer Father History of heart attack Mother Colon cancer Social History (Updated 01/07/24 @ 09:01 by Tomeka Geller PA-C) Household Members: Friend(s) Housing: Other Housing Other:: [employer] Are you a primary healthcare science specialist to a significant other at home: No Do you presently have visiting nurse or other home services: No Alcohol intake: former Patient Tobacco Use Status: Current everyday Tobacco user Tobacco use type: Cigarette Cigarettes Per Day: 6 service: No Current occupational status: retired Cognitive needs: No Hearing needs: No Vision needs: No Review of Systems Const All systems reviewed & are unremarkable except as noted in HPI and below Card Denies chest pain and Denies dyspnea Resp Denies dyspnea GI Denies abdominal pain, Reports constipation, Denies heartburn, Denies nausea and Denies vomiting Musc Reports abnormal gait Neuro Reports abnormal gait Physical Exam Vital Signs: Last Vital Signs Pulse 54 01/07/24 08:11 BP 133/54 L 01/07/24 08:11 BMI result Body Mass Index 23.4 Const General: cooperative, comfortable and no acute distress Orientation/consciousness: patient oriented x3 Limitations: physical limitations Eyes Sclerae: sclerae normal Resp Effort & Inspection: normal respiratory effort and able to speak in complete sentences Auscultation: clear to auscultation bilaterally, no rhonchi and no wheezes Cardio Rate: regular rate Rhythm: regular rhythm Heart sounds: S1 normal heart sound present and S2 normal heart sound present GI Palpation (GI): Soft to palpation and nontender Auscultation: normal bowel sounds Skin General skin exam: no rashes or lesions noted Neuro General: patient oriented x3 Extrem Other: L- wrist splint R- knee- brace- Psych Mental Status: mental status grossly normal Speech and movement: Normal speech and movement present Affect: Animated affect present and Anxious affect present Attitude: cooperative Thought content: Normal thought content present Results Reviewed Results Reviewed: Impression and Post Procedure Diagnosis: Endoscopy Findings: erosive gastritis duodenitis esophagitis Colonoscopy Findings: polyps internal hemorrhoids diverticular disease Plan: Await Pathology results Repeat Colonoscopy in 5 years due to FH and polyps today or earlier if clinically indicated High fiber diet leaflet avoid straining at stool, epsom salts and sitz bath, anusol supps or cream check nsaid hx and compliance with PPI, if h pylori pos then treat Name: Devi Gomez Age/Sex: 62/F Attending: Braulio Murray MD : 1960 Submitted by: Braulio Murray MD Copies to: Physician,Unknown MR #: [id number] Status: [facility] Collected: 06/20/22 Location: [facility] Received: 06/20/22 Diagnosis A. Duodenum, biopsy: Chronic inactive duodenitis. B. Stomach, biopsy: - Antral-type mucosa with moderate chronic active inflammation. - Positive for H pylori. C. EG junction, biopsy: - Cardiac-type mucosa with moderate chronic, focally active, inflammation; no intestinal metaplasia seen. - Chronic active esophagitis (few eosinophils and neutrophils). D. Esophagus, distal, biopsy: Active esophagitis (maximum eosinophil count 2 per high powered field). E. Colon, ascending, polypectomy: Tubular adenoma; negative for high-grade dysplasia or carcinoma. F. Cecum, polypectomy: Sessile serrated polyp. Clinical History Pre-Op Dx: Constipation, nausea, vomiting Post-Op Dx: Duodenitis, esophagitis, erosive gastritis, colon polyps, internal hemorrhoids, diverticulosis Microscopic Description A-F. Microscopic sections reviewed. Immunostain for H. pylori is reactive (B). Material Received A: Duodenum B: Stomach bx's C: EG junction bx's D: Distal esophagus bx's E: Ascending colon polyp F: Cecal polyp Gross Description Received in six parts. Part A: Received in formalin labeled Duodenum bx's are six glistening, semitranslucent, soft, curran, irregular tissue fragments, ranging from 0.1 to 0.25 cm. in greatest dimension, which are submitted in Patient: Devi Gomez Age/Sex: 62/F MR#: [id number] Page 1 of 2 Assessment & Plan Assessment & Plan (1) H. pylori infection: Comment: Reviewed note from Dr. Murray-HP never treated Patient did not show for follow-up procedure visit Code(s): A04.8 - Other specified bacterial intestinal infections Plan: Treat H pylori (2) Sessile serrated polyp of colon: Comment: Reviewed procedure report Code(s): D12.6 - Benign neoplasm of colon, unspecified Plan: Repeat asymptomatic colonoscopy 5 years-2026 (3) Tubular adenoma: Code(s): D36.9 - Benign neoplasm, unspecified site Plan: Repeat asymptomatic colonoscopy years-2026 Sooner if indicated (4) Family history of colon cancer: Code(s): Z80.0 - Family history of malignant neoplasm of digestive organs (5) Diverticulosis of colon: Code(s): K57.30 - Diverticulosis of large intestine without perforation or abscess without bleeding Plan: High-fiber Plan stopp ppi x 2 wks carafate interim HP stool 2 wks Call for result in 2 days after submit will tx acciordingly- Orders: Orders H pylori Ag Stool 6 Weeks A04.8 - Other specified bacterial intestinal infections Medications: New docusate sodium (Colace) 200 mg (2 x 100 mg) PO BEDTIME 60 caps 5RF polyethylene glycol 3350 (Miralax) 17 grams PO DAILY 510 grams 6RF metronidazole 250 mg PO QID 14 days 56 tabs 0RF doxycycline monohydrate 100 mg PO BID 14 days 28 tabs 0RF bismuth subsalicylate (Bismuth) 2 tabs PO QID 14 days 112 tabs 0RF pantoprazole 20 mg PO BID 14 days 28 tabs 0RF Patient Instructions: Reviewed procedure report, pathology and recommendation Treat H pylori RAYMUNDO 6 weeks Maintain high-fiber Consistent bowel regimen Diverticulosis/diverticulitis ER protocol Opportunity for questions answered to her satisfaction REENFORCE F/u Coding Level of Care Code Est Pt Level 4 (73471) Diagnoses H. pylori infection A04.8 Sessile serrated polyp of colon D12.6 Tubular adenoma D36.9 Family history of colon cancer Z80.0 Diverticulosis of colon K57.30 Time Spent (min) 35
[2024-01-07 08:11] VITALS: BP 133/54; PULSE 54; BMI 23.4
== END 2024-01-07 09:47 | disposition home or self-care (01) ==
PROVIDERS: PCP Nurse Practitioner Family; Visit Provider Physician Assistant
DX: A04.8 Other specified bacterial intestinal infections (principal); D12.6 Benign neoplasm of colon, unspecified; D36.9 Benign neoplasm, unspecified site; Z80.0 Family history of malignant neoplasm of digestive organs; K57.30 Diverticulosis of large intestine without perforation or abscess without bleeding
CPT/HCPCS: 99214

== ENCOUNTER → 2024-01-07 07:51 | Outpatient (BNVA) | payer OTHER, SELFPAY | PROVIDERS: PCP Nurse Practitioner Family; Visit Provider Physician Assistant | DX: A04.8 Other specified bacterial intestinal infections (principal); D12.6 Benign neoplasm of colon, unspecified; D36.9 Benign neoplasm, unspecified site; K57.30 Diverticulosis of large intestine without perforation or abscess without bleeding; Z80.0 Family history of malignant neoplasm of digestive organs | CPT/HCPCS: 99212 ==

== ENCOUNTER 2024-02-06 09:28 | Outpatient (REF) | payer OTHER, SELFPAY | END 2024-02-06 09:29 | disposition home or self-care (01) | LOC: HO.LNP 09:28 | PROVIDERS: Visit Provider Physician Assistant | DX: A04.8 Other specified bacterial intestinal infections (principal) | CPT/HCPCS: 87338 ==

== ENCOUNTER 2024-02-25 10:38 | Outpatient (AMB) | payer OTHER, SELFPAY ==
[2024-02-25 10:44] VITALS: BP 121/57; PULSE 61; BMI 23.4
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
== END 2024-02-25 12:34 | disposition home or self-care (01) ==
PROVIDERS: PCP Nurse Practitioner Family; Visit Provider Physician Assistant
DX: D56.9 Thalassemia, unspecified (principal); D64.9 Anemia, unspecified; A04.8 Other specified bacterial intestinal infections
CPT/HCPCS: 99214

== ENCOUNTER → 2024-02-25 10:38 | Outpatient (BNVA) | payer OTHER, SELFPAY | PROVIDERS: PCP Nurse Practitioner Family; Visit Provider Physician Assistant ==

== ENCOUNTER 2024-02-25 11:42 | Outpatient (REF) | payer OTHER, SELFPAY ==
[2024-02-25 11:58] LABS: MANUAL DIFF FLAG NO
[2024-02-25 12:30] LABS: Basophils Absolute Auto 0.1 X10*3/uL (0.0-0.2); Basophils Percent Auto 1.3 % (0-2); Eosinophils Absolute Auto 0.4 X10*3/uL (0.0-0.4); Eosinophils Percent Auto 5.7 % (0-4); Hemoglobin 8.3 g/dl (12.0-16.0); Imm Gran Abs Auto 0.03 X10*3/uL (0.00-0.03); Imm Gran Pct Auto 0.4 % (0.0-0.4); Lymphocytes Absolute Auto 1.9 X10*3/uL (1.2-4.9); Lymphocytes Percent Auto 26.1 % (20-40); Mean Corpuscular HGB Conc 30.7 g/dl (31.0-35.0); Mean Corpuscular Hemoglobin 19.6 pg (27.0-33.0); Monocytes Absolute Auto 0.6 X10*3/uL (0.1-1.2); Monocytes Percent Auto 7.8 % (2-11); Neutrophils Absolute Auto 4.2 x10*3/uL (2.0-8.3); Neutrophils Percent Auto 58.7 % (45-73); Platelet Count 272 X10*3/uL (160-400); Red Blood Count 4.23 X10*6/uL (4.20-5.50); Red Cell Distribution Width 17.5 % (11.0-16.0); White Blood Count 7.2 X10*3/uL (4.8-10.8)
[2024-02-25 12:31] LABS: Mean Corpuscular Volume 63.8 fL (80.0-98.0)
== END 2024-02-25 11:43 | disposition home or self-care (01) ==
LOC: HO.LAB 11:42
PROVIDERS: PCP Nurse Practitioner Family; Visit Provider Physician Assistant
DX: D56.9 Thalassemia, unspecified (principal); D64.9 Anemia, unspecified; A04.8 Other specified bacterial intestinal infections
CPT/HCPCS: 36415; 85025; 99212

== ENCOUNTER 2024-09-01 12:32 | Outpatient (REF) | payer OTHER, SELFPAY ==
--- NOTE | ~2024-09-01 | MM_ITS ---
EXAMINATION: MM SCREENING DIGITAL BREAST TOMOSYNTHESIS, BILATERAL CLINICAL INFORMATION: Screening. Asymptomatic. COMPARISON: Mammography: Comparison is made with available priors TECHNIQUE: Digital breast mammography with tomosynthesis is performed in both the craniocaudal and mediolateral oblique views along with computer-aided detection (CAD). FINDINGS: There are scattered areas of fibroglandular density (ACR BI-RADS breast composition Category b). Right lumpectomy. There are no significant masses, abnormal calcifications, or other abnormalities. MM/MM tomosynthesis screening BI IMPRESSION: No mammographic evidence of malignancy. ASSESSMENT: BI-RADS BI-RADS 2 - Benign Findings RECOMMENDATION: Routine annual mammography screening. 1 year F/U This examination should not preclude the clinical evaluation of a suspicious palpable abnormality. This patient's information was entered into a reminder system with a target due date for their next mammogram. Electronically signed by: Johana Trejo DO 09/07/2024 05:25 PM NIKO
== END 2024-09-01 12:33 | disposition home or self-care (01) ==
LOC: HO.MAMMO 12:32
PROVIDERS: PCP Nurse Practitioner Family; Visit Provider Nurse Practitioner Family
DX: Z12.31 Encounter for screening mammogram for malignant neoplasm of breast (principal)
CPT/HCPCS: 77063; 77067

== ENCOUNTER → 2024-09-01 12:45 | Outpatient (BNV) | payer OTHER, SELFPAY | PROVIDERS: PCP Nurse Practitioner Family; Visit Provider Internal Medicine | DX: Z12.31 Encounter for screening mammogram for malignant neoplasm of breast (principal) | CPT/HCPCS: 77063; 77067 ==

== ENCOUNTER 2024-09-05 11:03 | Outpatient (REF) | payer OTHER, SELFPAY | END 2024-09-05 11:04 | disposition home or self-care (01) | LOC: HO.HMGCX 11:03 | PROVIDERS: PCP Nurse Practitioner Family; Visit Provider Family Medicine | DX: M25.511 Pain in right shoulder (principal) | CPT/HCPCS: 73030 ==

== ENCOUNTER 2024-10-06 09:17 | Outpatient (REF) | payer OTHER, SELFPAY ==
--- NOTE | ~2024-10-06 | XR_ITS ---
EXAMINATION: XR LUMBOSACRAL SPINE CLINICAL INFORMATION: M54.50 - Low back pain, unspecified COMPARISON: X-ray dated September 18, 2023 TECHNIQUE: Three views of the lumbosacral spine. FINDINGS: Endplate sclerosis decreased intervertebral disc height marginal osteophyte formation and L4-5 and L5-S1 levels. Facet joint hypertrophy at L5-S1. No acute cortical disruption. No gross malalignment. No lytic or blastic lesions. Vascular calcifications, abdominal aorta. S-shaped curvature of the lumbar spine which could be positional. XR/XR lumbar spine 2-3V IMPRESSION: Spondylosis L5-S1 and to a lesser extent L4-5. Electronically signed by: Cecilio Holliday MD 10/07/2024 04:10 PM NIKO
== END 2024-10-06 09:18 | disposition home or self-care (01) ==
LOC: HO.HMGCX 09:17
PROVIDERS: PCP Nurse Practitioner Family; Visit Provider Nurse Practitioner Family
DX: M54.50 Low back pain, unspecified (principal); G89.29 Other chronic pain; A04.8 Other specified bacterial intestinal infections; K59.09 Other constipation; R11.2 Nausea with vomiting, unspecified; K21.9 Gastro-esophageal reflux disease without esophagitis; R10.13 Epigastric pain
CPT/HCPCS: 72100; 99212

== ENCOUNTER → 2024-10-06 09:20 | Outpatient (BNV) | payer OTHER, SELFPAY | PROVIDERS: PCP Nurse Practitioner Family; Visit Provider Radiology Diagnostic Radiology | DX: M54.50 Low back pain, unspecified (principal) | CPT/HCPCS: 72100 ==

== ENCOUNTER 2024-10-06 16:04 | Outpatient (AMB) | payer OTHER, SELFPAY ==
[2024-10-06 16:13] VITALS: BP 134/64; PULSE 60; O2SAT 94; BMI 25.7
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
== END 2024-10-06 16:54 | disposition home or self-care (01) ==
PROVIDERS: PCP Nurse Practitioner Family; Visit Provider Nurse Practitioner Family
DX: A04.8 Other specified bacterial intestinal infections (principal); K59.09 Other constipation; R11.2 Nausea with vomiting, unspecified; K21.9 Gastro-esophageal reflux disease without esophagitis; R10.13 Epigastric pain
CPT/HCPCS: 99214; G2211

== ENCOUNTER 2024-12-10 13:11 | Outpatient (AMB) | payer OTHER, SELFPAY ==
[2024-12-10 13:13] VITALS: BP 130/70; PULSE 83; TEMP 36.7; O2SAT 93; BMI 22.7
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
== END 2024-12-10 14:37 | disposition home or self-care (01) ==
LOC: HO.HMCC 13:12
PROVIDERS: PCP Nurse Practitioner Family; Visit Provider Nurse Practitioner Family
DX: M51.369 Other intervertebral disc degeneration, lumbar region without mention of lumbar back pain or lower extremity pain (principal); Z13.820 Encounter for screening for osteoporosis; F17.200 Nicotine dependence, unspecified, uncomplicated; F43.21 Adjustment disorder with depressed mood

== ENCOUNTER → 2024-12-10 13:11 | Outpatient (BNVA) | payer OTHER, SELFPAY | PROVIDERS: PCP Nurse Practitioner Family; Visit Provider Nurse Practitioner Family | DX: M51.369 Other intervertebral disc degeneration, lumbar region without mention of lumbar back pain or lower extremity pain (principal); F43.21 Adjustment disorder with depressed mood; F17.200 Nicotine dependence, unspecified, uncomplicated; Z71.6 Tobacco abuse counseling | CPT/HCPCS: 96127; 99212 ==

== ENCOUNTER → 2024-12-28 07:26 | Outpatient (BNVA) | payer OTHER, SELFPAY | PROVIDERS: PCP Nurse Practitioner Family; Visit Provider Nurse Practitioner Family ==

== ENCOUNTER 2025-01-29 | Outpatient (REF) | payer OTHER, SELFPAY | END 2025-01-29 00:01 | disposition home or self-care (01) | LOC: CF | PROVIDERS: PCP Nurse Practitioner Family; Visit Provider Physician Assistant Medical | DX: F17.210 Nicotine dependence, cigarettes, uncomplicated (principal); Z85.3 Personal history of malignant neoplasm of breast; Z92.3 Personal history of irradiation; Z92.21 Personal history of antineoplastic chemotherapy | CPT/HCPCS: G0296 ==

== ENCOUNTER → 2025-02-02 09:01 | Outpatient (BNVA) | payer OTHER, SELFPAY | PROVIDERS: PCP Nurse Practitioner Family; Visit Provider Physician Assistant Medical ==

== ENCOUNTER 2025-02-03 10:53 | Outpatient (AMB) | payer OTHER, SELFPAY ==
--- NOTE | 2025-02-03 11:17 | A.OFFVIS_ITS ---
Vital Signs 02/03/25 11:18 Height 5 ft Weight 116 lb BMI 22.7 BP 180/82 H Blood Pressure Location Rt brachial Position Sitting Pulse 60 Pulse Source Pulse Oximeter Pulse Oximetry (%) 96 Oxygen Delivery Method Room Air Intake Visit Reasons: cic Intake Note: ESTABLISHED PATIENT for mgmt of CIC w/ prev hx of H Pylori. CC; Pt reports that her sx have more or less resolved. Pt still taking PPI PRN but does not need it every day. Pt comments that fecal abn have resolved since completing H Pylori Tx. No additional sx or concerns at this time. Administrative Office Clerk Required: No Accompanied by: Self / Same As Patient Allergies amoxicillin [From AUGMENTIN] Allergy (Intermediate, Verified 02/03/25 11:19) RASH clavulanic acid [From AUGMENTIN] Allergy (Intermediate, Verified 02/03/25 11:19) RASH codeine [CODEINE] Allergy (Intermediate, Verified 02/03/25 11:19) GI DISTRESS Penicillins [PENICILLINS] Allergy (Intermediate, Verified 02/03/25 11:19) RASH Sulfa (Sulfonamide Antibiotics) [SULFA (SULFONAMIDE ANTIBIOTICS)] Allergy (Intermediate, Verified 02/03/25 11:19) GI UPSET/SKIN REACTION Medication List - Last Reconciled 02/03/25 by Suzanne Woodard, MEDIA SALES CONSULTANT- amlodipine 10 mg PO DAILY aspirin 81 mg PO DAILY [id number] 250-250-65 mg (Excedrin Migraine) 2 tabs PO Q6H PRN atorvastatin 40 mg PO DAILY buspirone 15 mg PO BID 30 days folic acid 1 mg PO DAILY [Knee brace Right knee brace for right knee sprain/] levothyroxine 175 mcg PO DAILY lisinopril 20 mg PO DAILY methadone 165 mg PO DAILY metoprolol succinate ER 25 mg PO DAILY omeprazole 20 mg PO BID 90 days HPI HPI cic: Details: LAST VISIT: H. pylori infection Chronic constipation Nausea & vomiting GERD (gastroesophageal reflux disease) Dyspepsia Plan We will retreat patient as her symptoms are pretty severe and she did not finish treatment due to having nausea and vomiting. We will retest her and send her for upper endoscopy after. Patient will continue avoiding dietary triggers. Avoid eating late at night. Will send her script for Linzess. Patient is on methadone which makes her constipated. High-fiber diet encouraged. Patient will increase fluid intake and activity to promote better bowel motility. Patient will call our office if she will not tolerate her antibiotics. Return in the office in 8 weeks for retesting. Patient is agreeable to current plan of care and verbalizes understanding of instructions. She was given the opportunity to ask questions and all questions answered. ? Thank you for allowing me to participate in her care Medications New bismuth subsalicylate 2 tabs PO QID 14 days PRN 112 tabs 0RF diarrhea A04.8 metronidazole 1,000 mg (2 x 500 mg) PO BID 56 tabs 0RF A04.8 doxycycline hyclate 100 mg PO BID 14 days 28 caps 0RF linaclotide (Linzess) 145 mcg PO DAILY 30 caps 2RF Changed Changed From omeprazole 20 mg PO DAILY 90 caps 1RF Changed To omeprazole 20 mg PO BID 60 caps 1RF Changed From ondansetron 4 mg PO TID PRN 30 tabs 1RF nausea and vomiting R11.2 Changed To ondansetron 4 mg PO BID PRN 28 tabs 0RF nausea and vomiting R11.2 TODAY'S VISIT: Patient reports that she completed the treatment for H pylori. Patient reports that she was not feeling well when she was taking the antibiotics, however the pain that she experienced before she was placed on antibiotics when diagnosed with H pylori was far worse. Patient reports that currently she has been feeli ng great occasional acid reflux which she takes omeprazole for. Patient took omeprazole 3 days ago. Patient reports that now she is moving her bowels without any issues. No longer using Linzess. Patient reports to have good appetite. Patient denies any other GI concerning symptoms today [facility] Medical History Invasive ductal carcinoma of right breast (~2018) CAD (coronary artery disease) Atherosclerosis of both carotid arteries HTN (hypertension) Hypercholesterolemia Graves disease Thalassemia Iron deficiency anemia Nicotine dependence, cigarettes, uncomplicated H. pylori infection (~2021) Tubular adenoma of colon (~2021) Sessile serrated polyp of colon (~2021) Fracture of left distal radius Surgical History (Updated 02/03/25 @ 11:24 by MAURILIO Dyer) H/O: knee surgery History of carpal tunnel surgery of left wrist History of lumpectomy of right breast History of colonoscopy History of partial hysterectomy History of esophagogastroduodenoscopy (EGD) History of fracture of nose Family History Sister FH: kidney cancer Mother Colon cancer Sister Breast cancer Sister Breast cancer Father History of heart attack Mother Colon cancer Social History Household Members: Friend(s) Housing: Other Housing Other:: [place] Are you a primary child day care center worker to a significant other at home: No Do you presently have visiting nurse or other home services: No Alcohol intake: former Patient Tobacco Use Status: Current everyday Tobacco user Tobacco use type: Cigarette Cigarettes Per Day: 5 Years Smoked: (onset 19yo, 1ppd x 45yrs, now 1/4ppd - 40pyh) service: No Current occupational status: retired Cognitive needs: No Hearing needs: No Vision needs: No Review of Systems Const Denies weight gain and Denies weight loss ENT Reports no additional complaints, Denies dysphagia and Denies odynophagia Card Reports no additional complaints Resp Reports no additional complaints GI Denies abdominal pain, Denies belching, Denies melena, Denies bloating, Denies change in bowel habits, Denies dysphagia, Denies excessive flatus, Denies dyspepsia, Reports heartburn (Occasional), Denies diarrhea, Denies loose stools, Denies nausea, Denies odynophagia and Denies vomiting Musc Reports no additional complaints Neuro Reports no additional complaints Psych Reports no additional complaints Endo Reports no additional complaints Physical Exam Vital Signs: Last Vital Signs Pulse 60 02/03/25 11:18 BP 180/82 H 02/03/25 11:18 Pulse Ox 96 02/03/25 11:18 Oxygen Delivery Method Room Air 02/03/25 11:18 BMI result Body Mass Index 22.7 Const General: healthy appearing, no acute distress and well developed Nutritional Appearance: well nourished Orientation/consciousness: patient oriented x3 Resp Effort & Inspection: normal respiratory effort, able to speak in complete sentences, no tracheal deviation and symmetric chest movement Auscultation: clear to auscultation bilaterally Cardio Rate: regular rate GI Inspection: Yes normal to inspection and No distended Palpation (GI): Soft to palpation, not firm, nontender and No hepatosplenomegaly present Auscultation: normal bowel sounds General: Yes no CVA tenderness Back/Spine/Pelvis Back: no CVA tenderness Skin General skin exam: elasticity normal, turgor normal and dry skin Neuro General: patient oriented x3 Psych Appearance: grossly normal Mental Status: mental status grossly normal Assessment & Plan Assessment & Plan (1) H. pylori infection: Onset Date: ~2021 Comment: (+ H Pylori on 05/2022 scope) Code(s): A04.8 - Other specified bacterial intestinal infections Category: Medical (2) Chronic constipation: Code(s): K59.09 - Other constipation Category: Medical (3) Nausea & vomiting: Code(s): R11.2 - Nausea with vomiting, unspecified Category: Medical Qualifiers: Vomiting type: unspecified Qualified Code(s): R11.2 - Nausea with vomiting, unspecified (4) GERD (gastroesophageal reflux disease): Code(s): K21.9 - Gastro-esophageal reflux disease without esophagitis Qualifiers: Esophagitis presence: esophagitis presence not specified Qualified Code(s): K21.9 - Gastro-esophageal reflux disease without esophagitis (5) Dyspepsia: Code(s): R10.13 - Epigastric pain Plan Successfully completed treatment for H pylori. Patient will return in 2 weeks to get retested to check for eradication of the bacteria. Patient reports that she is feeling well now. Increase fluid intake and activity to promote better bowel motility. Discussed with patient the importance of avoiding dietary triggers and late night snacking. Patient will hold off on taking the omeprazole and will start taking famotidine daily or twice a day as needed. Patient will stop famotidine 24 hours before coming for H pylori testing patient will return in the office in 3 months, sooner on as needed basis. She is agreeable to this plan and verbalizes understanding of instructions. She was given the opportunity to ask questions and all questions answered. Thank you for allowing me to participate in her care Orders: Orders H Pylori Breath Test Today K21.9 - Gastro-esophageal reflux disease without esophagitis Medications: New famotidine (Pepcid) 20 mg PO DAILY 30 tabs 0RF K21.9 - Gastro-esophageal reflux disease without esophagitis Changed From omeprazole 20 mg PO BID 90 days 180 caps 1RF To omeprazole 20 mg PO DAILY 90 days 90 caps 1RF Coding Level of Care Code Est Pt Level 3 (49331) Diagnoses H. pylori infection A04.8 Chronic constipation K59.09 Nausea and vomiting, unspecified vomiting type R11.2 Vomiting type: unspecified Gastroesophageal reflux disease, unspecified whether esophagitis present K21.9 Esophagitis presence: esophagitis presence not specified Dyspepsia R10.13 Time Spent (min) 25 Comment 15 minutes spent with patient and additional 10 minutes spent reviewing her records
[2025-02-03 11:18] VITALS: BP 180/82; PULSE 60; O2SAT 96; BMI 22.7
== END 2025-02-03 11:57 | disposition home or self-care (01) ==
LOC: HO.HGI 10:54
PROVIDERS: PCP Nurse Practitioner Family; Visit Provider Nurse Practitioner Family
DX: A04.8 Other specified bacterial intestinal infections (principal); K59.09 Other constipation; R11.2 Nausea with vomiting, unspecified; K21.9 Gastro-esophageal reflux disease without esophagitis; R10.13 Epigastric pain
CPT/HCPCS: 99213

== ENCOUNTER → 2025-02-03 10:53 | Outpatient (BNVA) | payer OTHER, SELFPAY | PROVIDERS: PCP Nurse Practitioner Family; Visit Provider Nurse Practitioner Family | DX: K59.09 Other constipation (principal); K21.9 Gastro-esophageal reflux disease without esophagitis; A04.8 Other specified bacterial intestinal infections; R11.2 Nausea with vomiting, unspecified; R10.13 Epigastric pain | CPT/HCPCS: 99212 ==

== ENCOUNTER 2025-02-19 10:46 | Outpatient (REF) | payer OTHER, SELFPAY ==
[2025-02-20 09:00] LABS: H Pylori Breath Test Positive (Negative)
== END 2025-02-19 10:47 | disposition home or self-care (01) ==
LOC: HO.LNP 10:46
PROVIDERS: PCP Nurse Practitioner Family; Visit Provider Nurse Practitioner Family
DX: R11.2 Nausea with vomiting, unspecified (principal); K21.9 Gastro-esophageal reflux disease without esophagitis
CPT/HCPCS: 83013; 99211

== ENCOUNTER 2025-02-19 10:46 | Outpatient (AMB) | payer OTHER, SELFPAY ==
--- NOTE | 2025-02-19 11:03 | AM.OFFVISNUR ---
Intake Visit Reasons: h pylori Allergies amoxicillin [From AUGMENTIN] Allergy (Intermediate, Verified 02/03/25 11:19) RASH clavulanic acid [From AUGMENTIN] Allergy (Intermediate, Verified 02/03/25 11:19) RASH codeine [CODEINE] Allergy (Intermediate, Verified 02/03/25 11:19) GI DISTRESS Penicillins [PENICILLINS] Allergy (Intermediate, Verified 02/03/25 11:19) RASH Sulfa (Sulfonamide Antibiotics) [SULFA (SULFONAMIDE ANTIBIOTICS)] Allergy (Intermediate, Verified 02/03/25 11:19) GI UPSET/SKIN REACTION Nursing Note Patient presents for collection of H Pylori breath test. Patient has been fasting for 1 hour (nothing to eat, drink, no chewing gum or smoking) has not taken any antacid medication for at least 2 weeks and has no allergies to artificial sweeteners.?? Assessment & Plan Assessment & Plan (1) Nausea & vomiting: Code(s): R11.2 - Nausea with vomiting, unspecified Category: Medical Qualifiers: Vomiting type: unspecified Qualified Code(s): R11.2 - Nausea with vomiting, unspecified Plan Patient presents for collection of H Pylori breath test. Patient has been fasting for 1 hour (nothing to eat, drink, no chewing gum or smoking) has not taken any antacid medication for at least 2 weeks and has no allergies to artificial sweeteners.???This test checks for an overgrowth of bacteria in your stomach. We all have bacteria but some may have more than others. It is treatable. if the test comes back negative there is nothing else to do. If the test result is positive we will treat you with 2 antibiotics and a medication to decrease the acid in your stomach (PPI) for 2 weeks. Two weeks after you have completed the treatment we will retest you to make sure the overgrowth has resolved. Patient Instructions: Process for specimen collection and reason for testing was explained to the patient. Specimen collection. Patient instructed to take a deep breath and then exhale into the blue bag, filling it up as much as possible. Patient instructed to drink a mixture of water and the artificial sweetener with a straw. A 15 minute wait period was observed. Patient instructed to take a deep breath and then exhale into the pink bag, filling it up as much as possible. Coding Level of Care Code Established Pt Est Pt Level 1 (60561) Patient Type Established Medical Decision Making Straight Forward Diagnoses Nausea and vomiting, unspecified vomiting type R11.2 Vomiting type: unspecified
== END 2025-02-19 11:04 | disposition home or self-care (01) ==
LOC: HO.HGI 10:47
PROVIDERS: PCP Nurse Practitioner Family; Visit Provider Nurse Practitioner Family
DX: R11.2 Nausea with vomiting, unspecified (principal)

== ENCOUNTER 2025-02-23 11:25 | Outpatient (REF) | payer OTHER, SELFPAY ==
[2025-02-23 18:21] LABS: CT PCR NOT DETECTED (Not Detect.); NG PCR NOT DETECTED (Not Detect.)
[2025-02-24 09:02] LABS: HIV AB/AG Nonreactive (Nonreactive); HIV Num 1 0.05 S/CO (0.00-0.99); ~HepC Num1 6.83 S/CO (0.00-0.79); ~Hepatitis C Antibody Reactive (Nonreactive)
[2025-02-24 09:18] LABS: Syphilis Screen Nonreactive (Nonreactive)
== END 2025-02-23 11:26 | disposition home or self-care (01) ==
LOC: HO.HMGCLDS 11:25
PROVIDERS: PCP Nurse Practitioner Family; Visit Provider Nurse Practitioner Family
DX: N76.0 Acute vaginitis (principal); Z11.3 Encounter for screening for infections with a predominantly sexual mode of transmission
CPT/HCPCS: 86780; 86803; 87389; 87491; 87591; 99212

== ENCOUNTER 2025-02-23 11:25 | Outpatient (AMB) | payer OTHER, SELFPAY ==
--- NOTE | 2025-02-23 13:02 | AM.OFFWIN_ITS ---
Intake Vital Signs 02/23/25 13:07 Weight 103 lb BP 130/80 Blood Pressure Location Rt brachial Position Sitting Pulse 58 Pulse Source Pulse Oximeter Pulse Oximetry (%) 97 Oxygen Delivery Method Room Air Intake Visit Reasons: EP personal issues she wants to discuss Intake Note: Patient here for green vaginal discharge after having sexual intercourse about a week ago. Patient Tobacco Use Status: Current everyday Tobacco user Allergies amoxicillin [From AUGMENTIN] Allergy (Intermediate, Verified 02/23/25 13:09) RASH clavulanic acid [From AUGMENTIN] Allergy (Intermediate, Verified 02/23/25 13:09) RASH codeine [CODEINE] Allergy (Intermediate, Verified 02/23/25 13:09) GI DISTRESS Penicillins [PENICILLINS] Allergy (Intermediate, Verified 02/23/25 13:09) RASH Sulfa (Sulfonamide Antibiotics) [SULFA (SULFONAMIDE ANTIBIOTICS)] Allergy (Intermediate, Verified 02/23/25 13:09) GI UPSET/SKIN REACTION Do you need a note to return to daycare/school/sports/work: No HPI HPI Comments History of Present Illness Details 64 y/o Female patient who presents to [facility] with c/o Vaginal discharge with foul smell for 1 week. She did have unprotected sexual intercourse with a male partner. She is not in a relationship with this man - she is worried she might have contracted STI. The Male partner does Sell Drugs in the streets but not sure he does IV drug use. Will have patient go to Lab for HIV and Syphilis testing. Pt was previously treated with Abx due to H. Pylori infection. The repeat of Breath test - patient is still positive for H. Pylori. Her PCP has ordered Te tracycline 1000 mg and Metronidazole 1000 mg. [facility] Medical History (Updated 02/23/25 @ 18:18 by Vicenta García NP) Vaginitis and vulvovaginitis Screening examination for STI Invasive ductal carcinoma of right breast (~2018) CAD (coronary artery disease) Atherosclerosis of both carotid arteries HTN (hypertension) Hypercholesterolemia Graves disease Thalassemia Iron deficiency anemia Nicotine dependence, cigarettes, uncomplicated H. pylori infection (~2021) Tubular adenoma of colon (~2021) Sessile serrated polyp of colon (~2021) Fracture of left distal radius Surgical History (Updated 02/03/25 @ 11:24 by Say Rincon [facility] H/O: knee surgery History of carpal tunnel surgery of left wrist History of lumpectomy of right breast History of colonoscopy History of partial hysterectomy History of esophagogastroduodenoscopy (EGD) History of fracture of nose Family History Sister FH: kidney cancer Mother Colon cancer Sister Breast cancer Sister Breast cancer Father History of heart attack Mother Colon cancer Social History Household Members: Friend(s) Housing: Other Housing Other:: [employer] Are you a primary healthcare social worker to a significant other at home: No Do you presently have visiting nurse or other home services: No Alcohol intake: former Patient Tobacco Use Status: Current everyday Tobacco user Tobacco use type: Cigarette Cigarettes Per Day: 5 Years Smoked: (onset 19yo, 1ppd x 45yrs, now 1/4ppd - 40pyh) service: No Current occupational status: retired Cognitive needs: No Hearing needs: No Vision needs: No Physical Exam Vital Signs: Last Vital Signs Pulse 58 02/23/25 13:07 BP 130/80 02/23/25 13:07 Pulse Ox 97 02/23/25 13:07 Oxygen Delivery Method Room Air 02/23/25 13:07 Const General: no acute distress and anxious Orientation/consciousness: patient oriented x3 External Female Exam: normal appearance of the urethra Speculum Exam - Vagina: abnormal vaginal discharge malodorous and munson, erythematous and tenderness Speculum Exam - Cervix: Other cervical findings present (Unable to visualize Uterus/Cervix) Neuro General: patient oriented x3, gait normal and moves all extremities Psych Speech and movement: Normal speech and movement present Affect: Anxious affect present Assessment & Plan Assessment & Plan (1) Screening examination for STI: Code(s): Z11.3 - Encounter for screening for infections with a predominantly sexual mode of transmission Plan: Ordered STI Panel Pelvic exam positive for Vaginal malodorous fluid Pt currently taking Metronidazole and Tetracycline Abx (This covers BV/Trich and Chlamydia). Ordered Fluconazole For Yeast infection. (2) Vaginitis and vulvovaginitis: Code(s): N76.0 - Acute vaginitis Plan: Ordered STI Panel Pelvic exam positive for Vaginal malodorous fluid Pt currently taking Metronidazole and Tetracycline Abx (This covers BV/Trich and Chlamydia). Ordered Fluconazole For Yeast infection Orders: Orders HIV Ab/Ag Today Z11.3 - Encounter for screening for infections with a predominantly sexual mode of transmission Syphilis Screen Today Z11.3 - Encounter for screening for infections with a predominantly sexual mode of transmission Hepatitis C Antibody Today Z11.3 - Encounter for screening for infections with a predominantly sexual mode of transmission CT NG by PCR Today Z11.3 - Encounter for screening for infections with a predominantly sexual mode of transmission Medications: New fluconazole TAKE 1 TABLET TODAY, TAKE SECOND DOSE IN 72 HOURS (3 DAYS). DO NOT TAKE MEDICATION WITH METHADONE. 150 mg PO DAILY 2 tabs 0RF N76.0 - Acute vaginitis Coding Level of Care Code Est Pt Level 4 (83429) Diagnoses Screening examination for STI Z11.3 Vaginitis and vulvovaginitis N76.0 Time Spent (min) 20
[2025-02-23 13:07] VITALS: BP 130/80; PULSE 58; O2SAT 97
== END 2025-02-23 14:18 | disposition home or self-care (01) ==
PROVIDERS: PCP Nurse Practitioner Family; Visit Provider Nurse Practitioner Family
DX: Z11.3 Encounter for screening for infections with a predominantly sexual mode of transmission (principal); N76.0 Acute vaginitis

== ENCOUNTER 2025-02-23 13:43 | Outpatient (REF) | payer OTHER, SELFPAY | END 2025-02-23 13:44 | disposition home or self-care (01) | LOC: HO.LAB 13:43 | PROVIDERS: Visit Provider Nurse Practitioner Family | DX: Z13.89 Encounter for screening for other disorder (principal) ==

== ENCOUNTER 2025-03-01 12:51 | Outpatient (REF) | payer OTHER, SELFPAY ==
[2025-03-02 20:49] LABS: HCV Log PCR <1.18 NOT DETECTED Log IU/mL (NOT DETECTED); HepC Viral Load <15 NOT DETECTED IU/mL (NOT DETECTED)
[2025-03-05 12:24] LABS: Hepatitis C Genotype Not Detected (Not Detected)
== END 2025-03-01 12:52 | disposition home or self-care (01) ==
LOC: HO.HMGCLDS 12:51
PROVIDERS: PCP Nurse Practitioner Family; Visit Provider Nurse Practitioner Family
DX: B19.20 Unspecified viral hepatitis C without hepatic coma (principal)
CPT/HCPCS: 36415; 87522; 87902

== ENCOUNTER 2025-08-02 10:13 | Outpatient (AMB) | payer OTHER, SELFPAY ==
[2025-08-02 10:25] VITALS: BP 126/58; PULSE 58; O2SAT 97; BMI 19.5
--- NOTE | 2025-08-02 10:25 | MHC.OFFVIS ---
Vital Signs 08/02/25 10:25 Height 5 ft Weight 100 lb BMI 19.5 BP 126/58 L Blood Pressure Location Rt brachial Position Sitting Pulse 58 Pulse Source Pulse Oximeter Pulse Oximetry (%) 97 Oxygen Delivery Method Room Air Intake Visit Reasons: 6m h pylori rest in january Intake Note: ESTABLISHED PATIENT for mgmt constipation w/ hx of H Pylori infection. CC; C.O. chronic sx persistence. Pt only was able to complete 5 days of abx tx prior to losing her medication. Pt states that she had been calling the office to get more medication. Upon investigation, it appears that the pt had the wrong number saved. This was promptly corrected in her personal device with her permission. Supervisor Color Paste Mixing Required: No Accompanied by: Self / Same As Patient Allergies amoxicillin (From AUGMENTIN) Allergy (Intermediate, Verified 02/23/25 13:09) RASH clavulanic acid (From AUGMENTIN) Allergy (Intermediate, Verified 02/23/25 13:09) RASH codeine (CODEINE) Allergy (Intermediate, Verified 02/23/25 13:09) GI DISTRESS Penicillins (PENICILLINS) Allergy (Intermediate, Verified 02/23/25 13:09) RASH Sulfa (Sulfonamide Antibiotics) (SULFA (SULFONAMIDE ANTIBIOTICS)) Allergy (Intermediate, Verified 02/23/25 13:09) GI UPSET/SKIN REACTION HPI HPI 6m h pylori rest in january: Details: LAST VISIT: H. pylori infection Chronic constipation Nausea & vomiting GERD (gastroesophageal reflux disease) Dyspepsia Plan Successfully completed treatment for H pylori. Patient will return in 2 weeks to get retested to check for eradication of the bacteria. Patient reports that she is feeling well now. Increase fluid intake and activity to promote better bowel motility. Discussed with patient the importance of avoiding dietary triggers and late night snacking. Patient will hold off on taking the omeprazole and will start taking famotidine daily or twice a day as needed. Patient will stop famotidine 24 hours before coming for H pylori testing patient will return in the office in 3 months, sooner on as needed basis. She is agreeable to this plan and verbalizes understanding of instructions. She was given the opportunity to ask questions and all questions answered. ? Thank you for allowing me to participate in her care Orders H Pylori Breath Test Today K21.9 New famotidine (Pepcid) 20 mg PO DAILY 30 tabs 0RF K21.9 Changed Changed From omeprazole 20 mg PO BID 90 days 180 caps 1RF Changed To omeprazole 20 mg PO DAILY 90 days 90 caps 1RF TODAY'S VISIT Patient is here today for follow-up. Patient reports that she was unable to finish her antibiotics as she forgot them when she was staying away. Patient reports that she only take 5 days of the antibiotics. Patient reports that she was very sick when she was taking the antibiotics. Currently she continues to have epigastric pain and dyspepsia without dysphagia or odynophagia. Patient reports that her sister was diagnosed with H pylori as well, she finished her treatment and she is feeling better. Patient is currently taking omeprazole and feels like it is not working. She is also taking famotidine at bedtime. Patient denies any nausea or vomiting. Reports unable to eat anything and losing weight due to that epigastric pain. [facility] Medical History (Updated 08/02/25 @ 19:41 by Suzanne Woodard, [facility]) GERD (gastroesophageal reflux disease) Vaginitis and vulvovaginitis Screening examination for STI Invasive ductal carcinoma of right breast (~2018) CAD (coronary artery disease) Atherosclerosis of both carotid arteries HTN (hypertension) Hypercholesterolemia Graves disease Thalassemia Iron deficiency anemia Nicotine dependence, cigarettes, uncomplicated H. pylori infection (~2021) Tubular adenoma of colon (~2021) Sessile serrated polyp of colon (~2021) Fracture of left distal radius Surgical History H/O: knee surgery History of carpal tunnel surgery of left wrist History of lumpectomy of right breast History of colonoscopy History of partial hysterectomy History of esophagogastroduodenoscopy (EGD) History of fracture of nose Family History Sister FH: kidney cancer Mother Colon cancer Sister Breast cancer Sister Breast cancer Father History of heart attack Mother Colon cancer Social History Household Members: Friend(s) Housing: Other Housing Other:: [place] Are you a primary health care facilities inspector to a significant other at home: No Do you presently have visiting nurse or other home services: No Alcohol intake: former Patient Tobacco Use Status: Current everyday Tobacco user Tobacco use type: Cigarette Cigarettes Per Day: 5 Years Smoked: (onset 19yo, 1ppd x 45yrs, now 1/4ppd - 40pyh) service: No Current occupational status: retired Cognitive needs: No Hearing needs: No Vision needs: No Review of Systems Const Denies weight gain and Denies weight loss ENT Reports no additional complaints, Denies dysphagia and Denies odynophagia Card Reports no additional complaints Resp Reports no additional complaints GI Reports abdominal pain (Epigastric pain), Denies belching, Denies melena, Reports bloating, Denies change in bowel habits, Denies dysphagia, Denies excessive flatus, Denies dyspepsia, Reports heartburn (Occasional), Denies diarrhea, Denies loose stools, Denies nausea, Denies odynophagia and Denies vomiting Reports no additional complaints Musc Reports no additional complaints Neuro Reports no additional complaints Psych Reports no additional complaints Endo Reports no additional complaints Physical Exam Vital Signs: Last Vital Signs Pulse 58 08/02/25 10:25 BP 126/58 L 08/02/25 10:25 Pulse Ox 97 08/02/25 10:25 Oxygen Delivery Method Room Air 08/02/25 10:25 BMI result Body Mass Index 19.5 Const General: healthy appearing, no acute distress and well developed Nutritional Appearance: well nourished Orientation/consciousness: patient oriented x3 Resp Effort & Inspection: normal respiratory effort, able to speak in complete sentences, no tracheal deviation and symmetric chest movement Auscultation: clear to auscultation bilaterally Cardio Rate: regular rate GI Inspection: Yes normal to inspection and No distended Palpation (GI): Soft to palpation, not firm, nontender and No hepatosplenomegaly present Auscultation: normal bowel sounds General: Yes no CVA tenderness Back/Spine/Pelvis Back: no CVA tenderness Skin General skin exam: elasticity normal, turgor normal and dry skin Neuro General: patient oriented x3 Psych Appearance: grossly normal Mental Status: mental status grossly normal Assessment & Plan Assessment & Plan (1) H. pylori infection: Onset Date: ~2021 Comment: (+ H Pylori on 05/2022 scope) Code(s): A04.8 - Other specified bacterial intestinal infections Category: Medical (2) Chronic constipation: Code(s): K59.09 - Other constipation Category: Medical (3) Diverticulosis of colon: Code(s): K57.30 - Diverticulosis of large intestine without perforation or abscess without bleeding Category: Medical (4) Hepatitis C: Code(s): B19.20 - Unspecified viral hepatitis C without hepatic coma Category: Medical (5) GERD (gastroesophageal reflux disease): Code(s): K21.9 - Gastro-esophageal reflux disease without esophagitis Category: Medical Qualifiers: Esophagitis presence: esophagitis presence not specified Qualified Code(s): K21.9 - Gastro-esophageal reflux disease without esophagitis (6) Postprandial epigastric pain: Code(s): R10.13 - Epigastric pain Plan Patient will start new treatment for H pylori. She will call us if she will not be able to get a PA for this medication. Patient is allergic to sulfa drugs and penicillin type antibiotics. She does not have been many choices. Script for Zofran sent to patient. Patient was encouraged to take medication with food. We will send a script for Nexium for patient. She can stop taking omeprazole as it was not helping her. Patient was encouraged to eat small meals and more often. Avoid dietary triggers and late night snacking. Staying upright for minimum 3 hours after meals discussed with patient. Patient was encouraged to call our office if she will continue with symptoms. Patient is agreeable to plan of care and verbalizes understanding of instructions. She was given the opportunity to ask questions and all questions answered. Thank you for allowing me to participate in her care Medications: New esomeprazole magnesium (Nexium) 40 mg PO DAILY 30 caps 2RF K21.9 - Gastro-esophageal reflux disease without esophagitis bismuth subcit [id number] 140-125-125 mg (Pylera) 3 caps PO QID 168 caps 0RF 14 days B96.81 - Helicobacter pylori [H. pylori] as the cause of diseases classified elsewhere, K29.70 - Gastritis, unspecified, without bleeding ondansetron 4 mg PO BID PRN 30 tabs 0RF nausea and vomiting Discontinued omeprazole Discontinued Reason: Doctor's Order 20 mg PO DAILY 90 days 90 caps 1RF bismuth subsalicylate Discontinued Reason: Doctor's Order 2 tabs PO QID 14 days 112 tabs 0RF diarrhea A04.8 - Other specified bacterial intestinal infections tetracycline Discontinued Reason: Doctor's Order 1,000 mg (2 x 500 mg) PO Q12H 56 caps 0RF A04.8 - Other specified bacterial intestinal infections metronidazole Discontinued Reason: Doctor's Order 1,000 mg (2 x 500 mg) PO BID 56 tabs 0RF A04.8 - Other specified bacterial intestinal infections Coding Level of Care Code Est Pt Level 4 (37479) Complex EM visit Add On G2211 Diagnoses H. pylori infection A04.8 Chronic constipation K59.09 Diverticulosis of colon K57.30 Hepatitis C B19.20 Gastroesophageal reflux disease, unspecified whether esophagitis present K21.9 Esophagitis presence: esophagitis presence not specified Postprandial epigastric pain R10.13 Time Spent (min) 35 Comment 25 minutes spent with patient and additional 10 minutes spent reviewing her records
== END 2025-08-02 11:00 | disposition home or self-care (01) ==
LOC: HO.HGI 10:14
PROVIDERS: PCP Nurse Practitioner Family; Visit Provider Nurse Practitioner Family
DX: A04.8 Other specified bacterial intestinal infections (principal); K59.09 Other constipation; K57.30 Diverticulosis of large intestine without perforation or abscess without bleeding; B19.20 Unspecified viral hepatitis C without hepatic coma; K21.9 Gastro-esophageal reflux disease without esophagitis; R10.13 Epigastric pain
CPT/HCPCS: 99214

== ENCOUNTER → 2025-08-02 10:13 | Outpatient (BNVA) | payer OTHER, SELFPAY | PROVIDERS: PCP Nurse Practitioner Family; Visit Provider Nurse Practitioner Family | DX: A04.8 Other specified bacterial intestinal infections (principal); K59.09 Other constipation; K21.9 Gastro-esophageal reflux disease without esophagitis; K57.30 Diverticulosis of large intestine without perforation or abscess without bleeding; R10.13 Epigastric pain; B19.20 Unspecified viral hepatitis C without hepatic coma | CPT/HCPCS: 99212 ==

== ENCOUNTER 2025-09-02 08:08 | Outpatient (REF) | payer OTHER, SELFPAY ==
[2025-09-02 10:28] LABS: MANUAL DIFF FLAG NO
[2025-09-02 10:40] LABS: Appearance Urine Clear; Glucose Urine UA Negative (Negative); PH 6.5 (5.0-9.0); Specific Gravity - Urine 1.015 (1.005-1.025)
[2025-09-02 10:41] LABS: Hematocrit 30.8 % (37.0-47.0); Hemoglobin 9.4 g/dl (12.0-16.0); Imm Gran Abs Auto 0.03 X10*3/uL (0.00-0.03); Imm Gran Pct Auto 0.5 % (0.0-0.4); Lymphocytes Absolute Auto 1.5 X10*3/uL (1.2-4.9); Mean Corpuscular HGB Conc 30.5 g/dl (31.0-35.0); Mean Corpuscular Hemoglobin 19.5 pg (27.0-33.0); NRBC Abs Auto 0.000 X10*3/uL (0.0-0.012); NRBC Pct Auto 0.0 /100WBC (0.0-0.2); Platelet Count 310 X10*3/uL (160-400); Red Blood Count 4.82 X10*6/uL (4.20-5.50); White Blood Count 6.2 X10*3/uL (4.8-10.8)
[2025-09-02 10:42] LABS: Mean Corpuscular Volume 63.9 fL (80.0-98.0)
[2025-09-02 12:05] LABS: Alanine Aminotransferase 11 U/L (0-31); Albumin Level 4.1 g/dL (3.5-5.0); Alkaline Phosphatase 116 U/L (39-117); Anion Gap 12 (12-20); Aspartate Amino Transferase 21 U/L (5-31); Blood Urea Nitrogen 27 mg/dL (9-16); Calcium 9.4 mg/dL (8.4-10.2); Carbon Dioxide 25 mmol/L (22-29); Chloride 108 mmol/L (96-108); Cholesterol 138 mg/dL (<200); Estimated Glomerular Filt Rate 49; HDL Cholesterol 41 mg/dL (>40); Potassium 4.9 mmol/L (3.3-5.1); Sodium 140 mmol/L (135-145); Total Protein 6.8 g/dL (6.5-8.0); Triglycerides 73 mg/dL (<150)
[2025-09-02 13:55] LABS: Free T4 (Free Thyroxine) 1.27 ng/dL (0.71-1.85)
[2025-09-06 21:03] LABS: HCV Log PCR <1.18 NOT DETECTED Log IU/mL (NOT DETECTED); HepC Viral Load <15 NOT DETECTED IU/mL (NOT DETECTED)
== END 2025-09-02 08:09 | disposition home or self-care (01) ==
LOC: HO.HMGCLDS 08:08
PROVIDERS: PCP Nurse Practitioner Family; Visit Provider Nurse Practitioner Family
DX: Z23 Encounter for immunization (principal); R63.4 Abnormal weight loss; F17.210 Nicotine dependence, cigarettes, uncomplicated; E05.00 Thyrotoxicosis with diffuse goiter without thyrotoxic crisis or storm; E03.9 Hypothyroidism, unspecified; E55.9 Vitamin D deficiency, unspecified; B19.20 Unspecified viral hepatitis C without hepatic coma
CPT/HCPCS: 36415; 80053; 80061; 81003; 82306; 84439; 84443; 85025; 87522; 90471; 90677; 96127; 99212

== ENCOUNTER 2025-09-02 08:29 | Outpatient (AMB) | payer OTHER, SELFPAY ==
[2025-09-02 08:32] VITALS: BP 106/60; PULSE 71; RESP 16; O2SAT 95; BMI 18.9
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
== END 2025-09-02 10:03 | disposition home or self-care (01) ==
LOC: HO.HMCC 08:30
PROVIDERS: Visit Provider Nurse Practitioner Family
DX: F17.210 Nicotine dependence, cigarettes, uncomplicated (principal); R63.4 Abnormal weight loss; E05.00 Thyrotoxicosis with diffuse goiter without thyrotoxic crisis or storm; Z23 Encounter for immunization